=== PATIENT | male | born 1955 | race Caucasian/White ===

== ENCOUNTER 2017-12-05 12:33 | Outpatient (CLI) | payer BC ==
--- NOTE | 2017-12-05 17:18 | CT Report ---
EXAM: CT CHEST EXAM DATE: 12/05/2017 01:17 PM. CLINICAL HISTORY: PLEURITIC CHEST PAIN. COMPARISONS: None. TECHNIQUE: Routine helical CT imaging was performed through the chest. IV contrast: None. Reconstruct ions: Coronal and sagittal. In accordance with CT protocol optimization, one or more of the following dose reduction techniques w ere utilized for this exam: automated exposure control, adjustment of mA and/or KV based on patient s ize, or use of iterative reconstructive technique. FINDINGS: Lungs/Pleura: No nodules, bronchial thickening, consolidation, or edema. Pulmonary vasculature is nor mal. No pericardial or pleural effusion. No pneumothorax. Mediastinum: Normal heart size. Visualization of cardiac chambers can be seen with underlying anemia. There are scattered coronary artery calcifications. Bones: There is no evidence of displaced rib fracture. There is mild sclerosis of the anterior latera l left seventh rib (for example image 18 series 6). 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 Visualized Abdomen: There are several hypodensities within the liver. The larger hypodensities demons trate attenuation characteristics suggestive of cysts. Visualized portions of the upper abdominal org ans demonstrate no acute abnormalities. Other: None. IMPRESSION: 1. No evidence of displaced rib fracture. 2. There is mild sclerosis of the anterior left seventh rib. This could represent remote fracture. 3. Lungs are clear. 4. Normal heart size. There are scattered coronary artery calcifications. 5. Visualization of cardiac chambers on noncontrast imaging may reflect underlying anemia. [facility] Referring Provider Line: [phone] SITE ID: [id number]
== END 2017-12-05 12:34 | disposition home or self-care (01) ==
LOC: DI 12:33
PROVIDERS: ATTEND Family Medicine
DX: R07.81 Pleurodynia (principal)
CPT/HCPCS: 71250

== ENCOUNTER 2018-11-19 22:05 | Outpatient (CLI) | payer BC | END 2018-11-19 22:06 | disposition short-term general hospital (02) | LOC: EMS 22:05 | PROVIDERS: ATTEND Surgery | DX: R55 Syncope and collapse (principal) | CPT/HCPCS: A0425; A0427 ==

== ENCOUNTER 2019-02-21 | Outpatient (CLI) | payer BC | END 2019-02-21 23:59 | disposition home or self-care (01) | DX: N39.0 Urinary tract infection, site not specified (principal) ==

== ENCOUNTER 2019-02-21 | Outpatient (CLI) | payer BC | END 2019-02-21 18:05 | disposition home or self-care (01) ==

== ENCOUNTER 2019-02-24 08:00 | Outpatient (CLI) | payer BC ==
[2019-02-24 19:01] LABS: ALBUMIN/GLOBULIN RATIO 1.4 (1.0-2.2); BILIRUBIN,TOTAL 1.3 mg/dL (0.2-1.0); CALCIUM 9.2 mg/dL (8.5-10.3); CREATININE 0.8 mg/dL (0.6-1.2); TOTAL PROTEIN 6.8 g/dL (6.7-8.2)
== END 2019-02-24 23:59 | disposition home or self-care (01) ==
LOC: LAB.WCP 08:00
PROVIDERS: ATTEND Family Medicine
DX: R53.83 Other fatigue (principal)
CPT/HCPCS: 36415; 80053

== ENCOUNTER 2019-02-28 15:39 | Outpatient (CLI) | payer BC ==
[2019-02-28 18:45] LABS: BILIRUBIN,URINE NEGATIVE (NEGATIVE); GLUCOSE, URINE (UA) NEGATIVE (NEGATIVE); KETONES,URINE (UA) NEGATIVE (NEGATIVE); LEUKOCYTE ESTERASE, URINE NEGATIVE (NEGATIVE); NITRITE,URINE NEGATIVE (NEGATIVE); OCCULT BLOOD,URINE TRACE-INTA (NEGATIVE); PH,URINE 7.5 PH (5.0-7.5); PROTEIN,URINE NEGATIVE (NEGATIVE); UROBILINOGEN,URINE 0.2 (NORMAL) E.U./dL (NORMAL)
[2019-02-28 18:50] LABS: CLARITY,URINE CLEAR (CLEAR)
== END 2019-02-28 23:59 | disposition home or self-care (01) ==
LOC: LAB.WCP 15:39
PROVIDERS: ATTEND Family Medicine
DX: N39.0 Urinary tract infection, site not specified (principal)
CPT/HCPCS: 81001; 81003; 87086

== ENCOUNTER 2019-03-03 08:00 | Outpatient (CLI) | payer BC ==
[2019-03-03 13:23] LABS: BILIRUBIN,URINE NEGATIVE (NEGATIVE); CLARITY,URINE CLEAR (CLEAR); GLUCOSE, URINE (UA) NEGATIVE (NEGATIVE); KETONES,URINE (UA) NEGATIVE (NEGATIVE); LEUKOCYTE ESTERASE, URINE NEGATIVE (NEGATIVE); NITRITE,URINE NEGATIVE (NEGATIVE); OCCULT BLOOD,URINE TRACE-INTA (NEGATIVE); PROTEIN,URINE NEGATIVE (NEGATIVE); UROBILINOGEN,URINE 0.2 (NORMAL) E.U./dL (NORMAL)
[2019-03-03 13:34] LABS: BACTERIA,URINE None Seen /HPF (None Seen); RBC,URINE None Seen /HPF (0-5); SQUAMOUS EPITHELIAL CELL,UR NONE SEEN (<= Few)
== END 2019-03-03 23:59 | disposition home or self-care (01) ==
LOC: LAB.WCP 08:00
PROVIDERS: ATTEND Family Medicine
DX: N39.0 Urinary tract infection, site not specified (principal)
CPT/HCPCS: 81001; 81003; 87086

== ENCOUNTER 2019-03-03 09:00 | Outpatient (CLI) | payer BC ==
[2019-03-03 19:58] LABS: H. PYLORIS ANTIGEN STL NEGATIVE (Negative)
== END 2019-03-03 09:01 | disposition home or self-care (01) ==
LOC: LAB.R 09:00
PROVIDERS: ATTEND Family Medicine
DX: R10.13 Epigastric pain (principal)
CPT/HCPCS: 87338

== ENCOUNTER 2020-07-04 09:51 | Outpatient (CLI) | payer BC, OTHER ==
--- NOTE | 2020-07-04 15:51 | XRAY Report ---
PROCEDURE: Lumbar Spine 2 View INDICATIONS: LOW BACK PAIN TECHNIQUE: 3 views of the lumbar spine were acquired. COMPARISON: None. FINDINGS: Bones: 5 [id number] vertebrae are present. There is normal bony alignment. No vertebral body compression fractures. No suspicious bony lesions. Severe disc space narrowing is present L4-5, L5- S1. Severe foraminal narrowing is noted at L5-S1. Anterior osteophytes are most prominent at L4 and L 5. Soft tissues: Overlying bowel gas pattern is normal. Significant colonic stool is present. No suspi cious soft tissue calcifications. IMPRESSION: 1. Degenerative changes most notable at L5-S1. 2. Significant stool consistent with constipation. No obstruction. Reviewed by: Nicole Morelos MD on 07/04/2020 3:50 PM PST Approved by: Nicole Morelos MD on 07/04/2020 3:50 PM PST Station ID: [id number]
== END 2020-07-05 23:59 | disposition home or self-care (01) ==
LOC: DI.WCP 07-05 09:51
PROVIDERS: ATTEND Family Medicine
DX: M47.817 Spondylosis without myelopathy or radiculopathy, lumbosacral region (principal)

== ENCOUNTER 2021-06-11 15:39 | Emergency (ER) | payer OTHER ==
[2021-06-11 16:16] VITALS: BP 147/102
[2021-06-11] MEDS ORDERED: predniSONE 20 MG TABLET PO STA (16:30)
--- NOTE | 2021-06-11 16:33 | ED Physician Documentation ---
PD HPI FOCAL NEURO - Stated complaint Stated Complaint: LT FACIAL DROOPING - Chief complaint Chief Complaint: Neuro - History obtained from History obtained from: Patient - History of Present Illness Timing - onset: Last night Timing - details: Gradual onset Severity of deficit: Severe Weakness: Face, Left. No: Arm, Hand, Leg, Foot, Right Numbness: No: Face, Arm, Hand, Leg, Foot, Right, Left Associated symptoms: No: Headache, Nausea / vomiting, Seizure, Syncope, Fall, Head injury, Chest pain, Neck pain, Back pain, Fever Contributing factors: negative: Anticoagulated, Vascular dz, Atrial fibrillation Baseline status: positive: A&OX3, ambulatory, indep Similar symptoms before: Has not had sx before Recently seen: Not recently seen Review of Systems Ten Systems: 10 systems reviewed and negative Constitutional: denies: Fever, Chills Throat: denies: Sore throat Cardiac: denies: Chest pain / pressure, Palpitations Respiratory: denies: Dyspnea, Cough GI: denies: Abdominal Pain, Nausea, Vomiting, Diarrhea Skin: denies: Rash Musculoskeletal: denies: Neck pain, Back pain Neurologic: denies: Confused, Headache PD PAST MEDICAL HISTORY - Past Medical History Past Medical History: No - Past Surgical History Past Surgical History: Yes - Present Medications Home Medications: Ambulatory Orders Medication Instructions Recorded Confirmed Valacyclovir HCl [Valtrex] 1,000 mg PO TID #21 tablet 06/11/21 predniSONE [Deltasone] 60 mg PO DAILY #21 tablet 06/11/21 - Allergies Allergies/Adverse Reactions: Allergies Allergy/AdvReac Type Severity Reaction Status Date / Time No Known Drug Allergies Allergy Verified 06/11/21 16:02 - Social History Does the pt smoke?: No Smoking Status: Never smoker Does the pt drink ETOH?: No Does the pt have substance abuse?: No Substance Use and Type: Marijuana PD ED PE NORMAL - Vitals Vital signs reviewed: Yes - General General: Alert and oriented X 3, No acute distress - HEENT HEENT: PERRL, EOMI, Moist mucous membranes, Pharynx benign - Neck Neck: Supple, no meningeal sign - Cardiac Cardiac: RRR - Respiratory Respiratory: No respiratory distress, Clear bilaterally - Abdomen Abdomen: Soft, Non tender, Non distended - Derm Derm: Warm and dry - Neuro Neuro: Alert and oriented X 3, Normal speech Eye Opening: Spontaneous Motor: Obeys Commands Verbal: Oriented GCS Score: 15 - Free text exam Free text exam: Left-sided facial droop. The forehead is involved. There is flattening of the nasolabial fold. Positive Bonner's phenomenon when closing the eye. Otherwise normal neurological exam. NIHSS - Time Time: 16:25 - Level of Consciousness Level of consciousness: (0) Alert, Keenly responsive LOC Questions: (0) Answers both Q's correct LOC Commands: (0) Performs both correctly - Gaze Best Gaze: (0) Normal - Visual Visual: (0) No loss - Facial Palsy Facial Palsy: (3) Complete paralysis - Motor Arms (both separate) Motor Arm (right): (0) No drift Motor Arm (left): (0) No drift - Motor Legs (both separate) Motor Leg (right): (0) No drift Motor Leg (left): (0) No drift - Limb Ataxia Limb Ataxia: (0) Absent - Sensory Sensory: (0) Normal - Best Language Best Language: (0) No aphasia - Dysarthria Dysarthria: (0) Normal - Extinction and Inattention (formally neg Extinction and inattention: (0) No abnormality - Total Score/Results Total Score/Result: 3 Results - Vitals Vitals: Vital Signs - 24 hr 06/11/21 06/11/21 15:58 16:13 Temperature 36.8 C Heart Rate 68 72 Respiratory 16 22 Rate Blood Pressure 156/98 H 147/102 H O2 Saturation 100 100 Oxygen O2 Source Room air PD MEDICAL DECISION MAKING - ED course Complexity details: reviewed results, re-evaluated patient, considered differential, d/w patient ED course: 65-year-old male presents to the emergency department with what appears to be a Bonner's palsy. No indication of acute CVA. We will place on valacyclovir and steroids for home. No other acute neurological findings. Patient counseled regarding signs and symptoms for which I believe and urgent re-evaluation would be necessary. Patient with good understanding of and agreement to plan and is comfortable going home at this time This document was made in part using voice recognition software. While efforts are made to proofread this document, sound alike and grammatical errors may occur. Departure - Departure Disposition: 01 Home, Self Care Clinical Impression: Bonner's palsy Condition: Good Instructions: ED S[place]fr[place] Palsy Follow-Up: Zac Rodriges DO [Primary Care Provider] - Within 1 week Prescriptions: predniSONE [Deltasone] 60 mg PO DAILY #21 tablet Valacyclovir HCl [Valtrex] 1,000 mg PO TID #21 tablet Comments: We will start you on prednisone and valacyclovir for your Bonner's palsy. Your prescriptions were sent to [facility] in [place]. You should also have artificial tears at home and gel tears at home. You may need to tape your left eye shut at night to help prevent any corneal ulcers or drying of the eye. Return if you worsen. This normally resolves on its own but can take several weeks to months. In some cases it can be permanent. It is also important that you follow-up closely with your doctor to ensure your healing appropriately.
== END 2021-06-11 16:43 | disposition home or self-care (01) ==
LOC: ED 15:39
DX: G51.0 Bell's palsy (principal)
CPT/HCPCS: 99282; 99283; J7512

== ENCOUNTER 2024-01-26 08:00 | Outpatient (CLI) | payer OTHER ==
[2024-01-26 21:03] LABS: BASOPHILS % (AUTO) 0.8 %; EOSINOPHILS # (AUTO) 0.1 10^3/uL (0.0-0.7); EOSINOPHILS % (AUTO) 1.4 %; HCT - HEMATOCRIT 41.2 % (42.0-52.0); LYMPHOCYTES # (AUTO) 1.7 10^3/uL (1.5-3.5); LYMPHOCYTES % (AUTO) 33.6 %; MEAN CORPUSCULAR HEMOGLOBIN 30.5 pg (27.0-31.0); MEAN CORPUSCULAR VOLUME 89.8 fL (80.0-94.0); MONOCYTES # (AUTO) 0.5 10^3/uL (0.0-1.0); MONOCYTES % (AUTO) 9.7 %; NEUTROPHILS # (AUTO) 2.8 10^3/uL (1.5-6.6); NEUTROPHILS % (AUTO) 54.3 %; PLT - PLATELET COUNT 232 10^3/uL (130-450); RED BLOOD COUNT 4.59 10^6/uL (4.70-6.10); RED CELL DISTRIBUTION WIDTH 12.5 % (12.0-15.0); WHITE BLOOD COUNT 5.1 x10^3/uL (4.8-10.8)
[2024-01-26 21:17] LABS: ALBUMIN 4.9 g/dL (3.2-5.5); BILIRUBIN,TOTAL 2.3 mg/dL (0.2-1.0); CALCIUM 10.2 mg/dL (8.5-10.3); TOTAL PROTEIN 7.4 g/dL (6.4-8.9)
[2024-01-26 21:29] LABS: THYROID STIMULATING HORMONE 1.22 uIU/mL (0.34-5.60)
== END 2024-01-26 23:59 | disposition home or self-care (01) ==
LOC: LAB.N 08:00
PROVIDERS: ATTEND Family Medicine
DX: R63.4 Abnormal weight loss (principal); R53.83 Other fatigue
CPT/HCPCS: 36415; 80053; 84443; 85025; 85651